=== PATIENT | female | born 1990 | race Caucasian/White ===

== ENCOUNTER 2018-02-10 03:50 | Inpatient (IN) | payer OTHER ==
[~2018-02-10] VITALS: Ht 157.5 cm; Wt 64.4 kg
[2018-02-10] MEDS ORDERED: LR 1,000 ML IV SCH ×2 (04:49→07:24)
[2018-02-10] MEDS ORDERED: LR 1,000 ML IV ONE (04:49)
[2018-02-10] MEDS ORDERED: AMPICILLIN SODIUM 1 GM in NS 50 ML IV SCH (05:00)
[2018-02-10] MEDS ORDERED: NALBUPHINE HCL 10 MG/ML AMP IVP PRN ×2 (05:00→07:30)
[2018-02-10] MEDS ORDERED: AMPICILLIN SODIUM 2 GM in NS 100 ML IV ONE (05:00)
[2018-02-10 06:11] LABS: HEMATOCRIT 35.8 % (36-48); HEMOGLOBIN 12.3 g/dL (12.0-16.0); MEAN CORPUSCULAR HEMOGLOBIN 31 pg (27-31); MEAN CORPUSCULAR HGB CONC 34 % (32-36); MEAN CORPUSCULAR VOLUME 91 fL (79.0-98.0); PLATELET COUNT (AUTO) 335 K/uL (130-430); RED BLOOD CELL COUNT(AUTO) 3.95 MIL/uL (4.2-6.2)
[2018-02-10] MEDS ORDERED: AMPICILLIN SODIUM 2 GM VIAL ONE (06:25)
[2018-02-10] MEDS ORDERED: CEFAZOLIN 2 GM IVPB PREMIX 50 ML IV ONE ×2 (06:27→06:30)
[2018-02-10] MEDS ORDERED: LR 1,000 ML IV.SOLN IV ONE (06:35)
[2018-02-10] MEDS ORDERED: NS IRRIG SOLN 1000 ML IR ONE (06:35)
[2018-02-10] MEDS ORDERED: BUPIVACAINE /DEX PF 0.75% SPINAL 2 ML AMP INJ ONE (06:35)
[2018-02-10] MEDS ORDERED: ONDANSETRON HCL 4 MG/2 ML VIAL IVP ONE (06:35)
[2018-02-10] MEDS ORDERED: METHYLERGONOVINE MALEATE 0.2 MG/ML AMP IM ONE (06:35)
[2018-02-10] MEDS ORDERED: MORPHINE SULFATE 10MG/10ML PF AMP EP ONE (06:35)
[2018-02-10 06:59] LABS: WHITE BLOOD COUNT (AUTO) 22.6 K/uL (4.8-10.8)
[2018-02-10] MEDS ORDERED: METHYLERGONOVINE MALEATE 0.2 MG/ML AMP ONE (07:19)
[2018-02-10] MEDS ORDERED: DIPHENHYDRAMINE INJ 50 MG/ML VIAL IVP PRN (07:30)
[2018-02-10] MEDS ORDERED: SENNOSIDES/DOCUSATE SODIUM 1 TAB TABLET(SENOKOT-S) PO PRN (07:30)
[2018-02-10] MEDS ORDERED: MORPHINE SULFATE 10MG/10ML PF AMP SP SCH (07:30)
[2018-02-10] MEDS ORDERED: KETOROLAC TROMETHAMINE 60 MG/2 ML VIAL IM PRN (07:30)
[2018-02-10] MEDS ORDERED: SIMETHICONE 80 MG TAB.CHEW PO PRN (07:30)
[2018-02-10] MEDS ORDERED: ONDANSETRON HCL 4 MG/2 ML VIAL IVP PRN ×2 (07:30)
[2018-02-10] MEDS ORDERED: NALOXONE HCL 0.4 MG/ML AMP (NARCAN) IVP PRN ×2 (07:30)
[2018-02-10] MEDS ORDERED: KETOROLAC TROMETHAMINE 30 MG VIAL IVP PRN (07:30)
[2018-02-10] MEDS ORDERED: MORPHINE SULFATE 10 MG/ML VIAL IVP PRN (07:30)
[2018-02-10] MEDS ORDERED: LANOLIN 7 GM OINT. TP PRN (07:30)
[2018-02-10] MEDS ORDERED: OXYCODONE/ACETAMINOPHEN 5-325 TABLET PO PRN (07:30)
[2018-02-10] MEDS ORDERED: fentaNYL CITRATE/PF 100 MCG/2 ML AMP IVP PRN ×2 (07:30)
[2018-02-10] MEDS ORDERED: ANUSOL 1 EA SUPP.RECT (PREPARATION H) RC PRN (07:30)
[2018-02-10] MEDS ORDERED: BISACODYL 10 MG/SUPPOSITORY RC PRN (07:30)
[2018-02-10 07:43] LABS: ATYPICAL LYMPHOCYTES % 0 % (0-0); BAND % (MANUAL) 3 % (0-6); BASOPHILS % (MANUAL) 0 % (0-2); EOSINOPHILS % (MANUAL) 0 % (0-7); LYMPHOCYTES % (MANUAL) 11 % (20-46); MONOCYTES % (MANUAL) 6 % (0-11)
[2018-02-10] MEDS ORDERED: OXYTOCIN/0.9 % SODIUM CHLORIDE 1,000 ML IV ONE ×2 (07:52→12:50)
[2018-02-10 08:09] VITALS: BP_SYST 131
[2018-02-10] MEDS ORDERED: TEMAZEPAM 15 MG CAPSULE PO PRN (21:00)
[2018-02-11] MEDS: IBUPROFEN 600 MG TABLET PO SCH ×4 (06:30→23:43)
[2018-02-11 06:46] LABS: MONOCYTES # (AUTO) 1.1 K/uL (0.0-1.0); WHITE BLOOD COUNT (AUTO) 23.3 K/uL (4.8-10.8)
[2018-02-11 06:56] LABS: BASOPHILS % (AUTO) 0.1 % (0.0-2.0); EOSINOPHILS % (AUTO) 0.1 % (0.0-4.0); HEMATOCRIT 30.4 % (36-48); HEMOGLOBIN 10.5 g/dL (12.0-16.0); LYMPHOCYTES % (AUTO) 4.1 % (20.5-51.5); MEAN CORPUSCULAR HEMOGLOBIN 32 pg (27-31); MEAN CORPUSCULAR HGB CONC 35 % (32-36); MEAN CORPUSCULAR VOLUME 91 fL (79.0-98.0); MONOCYTES % (AUTO) 4.6 % (1.7-9.3); NEUTROPHILS # (AUTO) 21.2 K/uL (1.8-7.7); NEUTROPHILS % (AUTO) 91.1 % (40.0-70.0); PLATELET COUNT (AUTO) 248 K/uL (130-430); RED BLOOD CELL COUNT(AUTO) 3.34 MIL/uL (4.2-6.2); RED CELL DISTRIBUTION WIDTH 13.2 % (9.0-15.0)
[2018-02-11] MEDS: OXYCODONE/ACETAMINOPHEN 5-325 TABLET PO PRN ×3 (09:15→21:09)
[2018-02-11] MEDS: DOCUSATE SODIUM 100 MG CAPSULE PO PRN ×2 (09:15→21:09)
[2018-02-12] MEDS: IBUPROFEN 600 MG TABLET PO SCH ×2 (06:35→12:14)
== END 2018-02-12 18:18 | disposition home or self-care (01) | DRG 766 ==
LOC: SPU 03:50 → OBSVTOIN 04:50 → SPU 09:04
PROVIDERS: ADMIT Obstetrics & Gynecology; ATTEND Obstetrics & Gynecology
PROC: 10D00Z1 Extraction of Products of Conception, Low, Open Approach (ICD-10-PCS; principal; 2018-02-10 07:00)
DX: O32.1XX0 Maternal care for breech presentation, not applicable or unspecified (principal); Z53.29 Procedure and treatment not carried out because of patient's decision for other reasons; Z3A.37 37 weeks gestation of pregnancy; Z37.0 Single live birth
CPT/HCPCS: 36415; 76815; 81002-TC; 85007; 85025; 85027; 86592; 86886; 86900; 86901; 94760; G0378; J0290; J0690; J2210; J2274; J2405; J2590; J3490; J7120